=== PATIENT | male | born 1940 | race Caucasian/White ===

== ENCOUNTER 2017-11-22 14:25 | Observation (INO) | payer MEDICARE, OTHER ==
[~2017-11-22] VITALS: Ht 182.9 cm; Wt 100.0 kg
--- NOTE | ~2017-11-22 | CN ---
PATIENT NAME:WALLY LIRA MEDICAL RECORD: [id number] : 38 LOCATION:D. D.2108 ADMIT DATE: 11/22/17 ACCOUNT: [id number] CONSULTING PHYSICIAN: RAMIRO PASCUAL MD REFERRING PHYSICIAN: EMMETT BORJA DO DATE OF CONSULTATION: 11/22/2017 CARDIOLOGY CONSULT DIAGNOSES: 1. Hypertension. 2. Palpitations. 3. PVCs and PACs - dysrhythmia. 4. TIA symptomatology with facial numbness. HISTORY: Mr. Lira presents with facial numbness and hypertension, systolic blood pressure in the 200 range. As well, he has some palpitations. He is having frequent PVCs and PACs. He has no ST-T abnormalities on his EKG. He has had no chest pain or chest discomfort. No real shortness of breath. Last cardiac stress test was approximately 5 years ago. PHYSICAL EXAMINATION: GENERAL APPEARANCE: Well-nourished, well-developed, appears stated age. Level of distress, comfortable. PSYCHIATRIC: Mental status, alert, normal affect. Orientation, oriented to time, place and person. EYES: Lids and conjunctiva, noninjected. No discharge, no pallor. ENT: Lips, teeth, gums, normal dentition. Oropharynx, no cyanosis, no pallor. NECK: Carotid arteries, bilateral normal upstroke, no bruits, no thrills. JUGULAR VEINS: No jugular venous pressure or distention. CERVICAL LYMPH NODES: Nontender, nonenlarged. THYROID: Not enlarged. Nontender. No nodules. LUNGS: Respiratory effort, unlabored. CHEST: Normal curvature. No thoracic deformity. No chest wall tenderness. Percussion, resonant. Auscultation, clear. No wheezes, no rales, no rhonchi. CARDIOVASCULAR: Precordial exam, nondisplaced. No heaves or pericardial thrills. Rate and rhythm, regular. Heart sounds, normal S1, normal S2. No S3, no gallop, no rub. Systolic murmur, not heard. Diastolic murmur, not heard. EXTREMITIES: No cyanosis, no edema. Peripheral pulses, full and equal in all extremities, except as noted. No bruits appreciated. ABDOMEN: Soft, nondistended. Normal aorta. No bruit. Nontender. No masses. Liver, nontender, no hepatomegaly. Spleen, nontender, no splenomegaly. MUSCULOSKELETAL: No joint tenderness. No joint swelling. No erythema. NEUROLOGICAL: Normal gait, normal strength, normal tone. SKIN: Warm and dry. OVERALL IMPRESSION: Hypertension, out of control. In the past, he has taken Norvasc and he did well with it. He just stopped taking it for no real reason. We will restart his Norvasc, give him a dose of clonidine to acutely get him down. I do not think he needs an acute workup for ischemic heart disease. If troponin is normal, we can do stress test as an outpatient. TRANSINT:[id number] Voice Confirmation ID: [id number] DOCUMENT ID: [id number] CONSULT REPORT [id number] WALLY LIRA JEFFREY MD at 1951 CC: [id number] DICTATION DATE: 11/22/17 1543 PATIENT FINANCIAL SPECIALIST: 11/22/17 1642 DIS IN 11/23/17 [facility] [address] [place] [address]
[2017-11-22 15:36] LABS: BASOPHILS 0.2 % (0-2); EOSINOPHILS 2.6 % (0-7); HEMATOCRIT 46.4 % (42.0-54.0); HEMOGLOBIN 15.6 g/dL (13.5-17.5); IMMATURE GRANULOCYTES 0.2 % (0-5); LYMPHOCYTES 23.1 % (15-50); MCH 31.5 pg (26.0-34.0); MCHC 33.6 g/dL (31.0-37.0); MCV 93.5 fL (80.0-100.0); MONOCYTES 9.1 % (2-11); NEUTROPHILS 64.8 % (40-80); PLATELET COUNT 146 10x3/uL (130-400); RBC 4.96 10x6/uL (4.20-6.10); RDW 13.4 % (11.5-14.5); WBC 6.6 10x3/uL (4.8-10.8)
[2017-11-22 15:53] LABS: ALBUMIN 3.5 g/dL (3.4-5.0); ALKALINE PHOSPHATASE 54 U/L (46-116); ALT (SGPT) 24 U/L (10-68); BILIRUBIN - TOTAL 0.56 mg/dL (0.2-1.3); CALC OSMOLALITY 278 mosm/kg (275-300); CALCIUM 8.6 mg/dL (8.5-10.1); CARBON DIOXIDE 27.1 mmol/L (21.0-32.0); CHLORIDE - SERUM 105 mmol/L (98-107); CREATININE - SERUM 0.9 mg/dL (0.6-1.3); GLUCOSE 109 mg/dL (74-106); POTASSIUM - SERUM 4.3 mmol/L (3.5-5.1); PROTEIN - SERUM 7.3 g/dL (6.4-8.2); SODIUM 140 mmol/L (136-145); UREA NITROGEN 11 mg/dL (7-18); eGFR NON AFRICAN AMERICAN 87 mL/min (90-120)
[2017-11-22 15:59] VITALS: BP 173/86
[2017-11-22 16:23] LABS: CKMB 0.7 U/L (0.0-3.6); CREATINE KINASE 49 UL (21-232); MAGNESIUM - SERUM 1.9 mg/dL (1.8-2.4); PRO BNP 171 pg/mL (0-450)
[2017-11-22 16:25] LABS: TROPONIN-I < 0.017 ng/mL (0.000-0.060)
[2017-11-22 16:33] LABS: AMYLASE - SERUM 39 U/L (25-115); LIPASE 72 U/L (73-393)
[2017-11-22 17:13] VITALS: BP 134/84
[2017-11-22 17:58] VITALS: BP 132/92
[2017-11-22 19:05] VITALS: BP 144/84
[2017-11-22 20:00] VITALS: BP 157/84
[2017-11-22 20:58] LABS: CKMB 0.9 U/L (0.0-3.6); CREATINE KINASE 92 UL (21-232)
[2017-11-22 21:05] LABS: TROPONIN-I < 0.017 ng/mL (0.000-0.060)
[2017-11-22 22:12] VITALS: Ht 182.9 cm; Wt 100.0 kg
[2017-11-23 03:16] LABS: CKMB 0.7 U/L (0.0-3.6); CREATINE KINASE 43 UL (21-232); TROPONIN-I < 0.017 ng/mL (0.000-0.060)
[2017-11-23 04:00] VITALS: BP 132/67
[2017-11-23] MEDS ORDERED: ASPIRIN325 MG PO (07:25)
[2017-11-23] MEDS ORDERED: NORVASC5 MG PO (07:25)
[2017-11-23 09:30] VITALS: BP 137/73
== END 2017-11-23 10:56 | disposition home or self-care (01) ==
LOC: D.ER 14:25 → D.EDHOLD 17:38 → OBSVTIME 17:38 → D.M2 19:22
PROVIDERS: Family Medicine
DX: I10 Essential (primary) hypertension (principal); I49.1 Atrial premature depolarization; I49.3 Ventricular premature depolarization